=== PATIENT | male | born 2000 | race Two or more races ===

== ENCOUNTER → 2022-04-01 | Outpatient (CLI) | payer OTHER ==
[2022-04-01 10:41] LABS: Basophils # (auto) 0 10 ^3/uL (0-0.2); Basophils % (auto) 0.7 % (0.0-2.0); Eosinophils # (auto) 0.1 10 ^3/uL (0-0.8); Eosinophils % (auto) 1.5 % (0.0-7.0); Hematocrit 43.3 % (41.0-53.0); Hemoglobin 14.4 g/dL (13.5-17.5); Lymphocytes # (auto) 1.4 10 ^3/uL (0.4-5.4); Lymphocytes % (auto) 21.6 % (10.0-50.0); Mean Corpuscular Hemoglobin 28.4 pg (28.0-32.0); Mean Corpuscular Hgb Conc. 33.3 g/dL (32.0-36.0); Mean Corpuscular Volume 85.3 fL (80.0-100.0); Monocytes # (auto) 0.5 10 ^3/uL (0-1.3); Neutrophils # (auto) 4.4 10 ^3/uL (1.6-8.6); Neutrophils % (auto) 68.2 % (37.0-80.0); Nucleated Red Blood Cells % 0.1 %; Red Blood Cells 5.08 10^6/uL (4.5-5.90); Red Cell Distribution Width 12.8 % (11.8-14.3); White Blood Cell 6.4 10^3/uL (4.4-10.8)
[2022-04-01 11:02] LABS: Potassium 4.7 mmol/L (3.5-5.1)
[2022-04-01 11:14] LABS: Albumin 3.6 g/dL (3.4-5.0); BUN/Creatinine Ratio 23.1; Bilirubin, Total 0.4 mg/dL (0.2-1.0); Calcium 9.2 mg/dL (8.5-10.1); Magnesium 1.8 mg/dL (1.6-2.6); Total Protein 6.6 g/dL (6.4-8.2)
[2022-04-01 11:18] LABS: Urine Bacteria NONE SEEN /hpf (None Seen); Urine Blood Negative /uL (Negative); Urine WBC 1 /hpf (0 - 3)
[2022-04-01 11:20] LABS: Hepatitis B Surface Antibody Negative (Negative)
[2022-04-01 11:58] LABS: Hepatitis A Total Antibody Positive (Negative)
[2022-04-01 16:55] LABS: Hepatitis C Antibody Negative (Negative)
[2022-04-02 14:03] LABS: Folate (Folic Acid) 5.87 ng/mL (5.38-24)
== END | disposition home or self-care (01) ==
LOC: LAB 09:53
PROVIDERS: ATTEND Family Medicine
DX: E86.0 Dehydration (principal)
CPT/HCPCS: 36415; 80053; 81001; 82150; 82550; 82607; 82746; 83690; 83735; 83880; 84484; 85025; 85610; 85652; 86704; 86706; 86708; 86803; 87340

== ENCOUNTER → 2022-04-08 | Outpatient (CLI) | payer OTHER ==
[2022-04-08 12:02] LABS: Urine Bacteria NONE SEEN /hpf (None Seen); Urine Blood Negative /uL (Negative); Urine Specific Gravity 1.014 (1.001-1.035); Urine WBC <1 /hpf (0 - 3)
[2022-04-08 12:37] LABS: Albumin 4.1 g/dL (3.4-5.0); Calcium 9.6 mg/dL (8.5-10.1); Potassium 4.4 mmol/L (3.5-5.1)
[2022-04-08 13:20] LABS: BUN/Creatinine Ratio 19.2; Bilirubin, Total 0.4 mg/dL (0.2-1.0); Total Protein 7.4 g/dL (6.4-8.2)
== END | disposition home or self-care (01) ==
LOC: LAB 11:29
PROVIDERS: ATTEND Family Medicine
DX: E86.0 Dehydration (principal)
CPT/HCPCS: 36415; 80053; 81001; 82550